=== PATIENT | male | born 1965 | race Caucasian/White ===

== ENCOUNTER 2025-04-06 13:01 | Day surgery (SDC) | payer OTHER ==
[~2025-04-06] VITALS: Ht 177.8 cm; Wt 86.3 kg
[~2025-04-06 13:01] MED LIST: IBLOOD GLUCOSE TEST STRIP 1 EA TEST VI PRN; LACTATED RINGER'S 1,000 ML IV SCH; LIDOCAINE HCL 1% 5 ML SDV INJ ONE; MIDAZOLAM HCL 5 MG/5 ML VIAL IV PRN; fentaNYL citrate 100 MCG/2 ML VIAL IV PRN
[2025-04-06 13:25] VITALS: BP 132/75
[2025-04-06] MEDS ORDERED: IBUPROFEN200 MG PO (13:46)
[2025-04-06] MEDS ORDERED: fentaNYL citrate 100 MCG/2 ML VIAL ONE (14:40)
[2025-04-06] MEDS ORDERED: MIDAZOLAM HCL 5 MG/5 ML VIAL ONE (14:40)
--- NOTE | 2025-04-06 15:39 | NUR ---
04/06/25 1539 Shayna Goode 1527: PT ARRIVED TO PACU VIA STRETCHER. PT ON 2L NC. PTS ABDOMEN SOFT NON DISTENED.
[2025-04-06 15:49] VITALS: BP 109/78
--- NOTE | 2025-04-06 18:55 | OR ---
[facility] [address], [place] [address] Signed DATE OF OPERATION: 04/06/2025 SURGEON: Morro Nguyen MD PREOPERATIVE DIAGNOSIS: Colon screening. POSTOPERATIVE DIAGNOSIS: Normal colon to cecum. PROCEDURE: Total colonoscopy. ANESTHESIA: Intravenous sedation; fentanyl 100 mcg and Versed 5 mg. INDICATION: This 60-year-old white man is a patient of Dr. Long and underwent evaluation by Dr. Long recently and was recommended to have colonoscopy on the basis of his age of 60 years. He did undergo colonoscopy [address] Long, which was said to be negative. He has no current symptoms of bleeding, diarrhea or constipation. He is admitted at this time to undergo screening colonoscopy. He understands the risk of bleeding, infection, and perforation. FINDINGS: The prep was quite excellent. Complete colonoscopy was undertaken to the cecum with full intubation of the cecum. There was no evidence of polyps, diverticular formation, colitis, or cancer. DESCRIPTION OF PROCEDURE: The patient was brought to the endoscopy suite and placed in lateral decubitus position, given intravenous sedation to point of slurred speech and nystagmus. Digital rectal examination was normal. An Olympus video colonoscope was passed in the rectum and manipulated throughout the colon, ultimately intubating the cecum itself. The prep was quite notably excellent. Scope was withdrawn from that point and examination throughout showed no sign of abnormality specifically no polyps, diverticular formation, colitis, or cancer. Retroflexed view of the rectum was normal. Scope was removed. The patient was taken to recovery room in good condition. Electronically Signed By: MORRO NGUYEN MD 04/06/25 [id number] PATIENT NAME: JERROD ORANTES OPERATIVE REPORT DATE OF : 61 REPORT #: [id number] PHYSICIAN: MORRO NGUYEN MD PCP: ENRIQUE LONG MD REPORT IS CONFIDENTIAL AND NOT TO BE RELEASED WITHOUT AUTHORIZATION [facility] [address], [place] [address] Signed CONCLUSION DIAGNOSIS: Normal colon to cecum. PLAN: Recommend repeat colonoscopy in 10 years based on current guidelines, sooner if symptoms should develop. MD DEDRA Yanes/DAV /[id number] cc: Dr. Jayden Long Copies: ~ Electronically Signed By: MORRO NGUYEN MD 04/06/25 1855 PATIENT NAME: JERROD ORANTES OPERATIVE REPORT DATE OF : 61 REPORT #: [id number] PHYSICIAN: MORRO NGUYEN MD PCP: ENRIQUE LONG MD REPORT IS CONFIDENTIAL AND NOT TO BE RELEASED WITHOUT AUTHORIZATION
== END 2025-04-06 16:00 | disposition home or self-care (01) ==
LOC: DS 13:01 → OPS 13:01
PROVIDERS: ATTEND Surgery
PROC: 0DJD8ZZ Inspection of Lower Intestinal Tract, Via Natural or Artificial Opening Endoscopic (ICD-10-PCS; principal; 2025-04-06 13:00)
DX: Z12.11 Encounter for screening for malignant neoplasm of colon (principal); I10 Essential (primary) hypertension
CPT/HCPCS: 99153; G0500; J2250; J3010; J7121